=== PATIENT | female | born 1970 | race Two or more races ===

== ENCOUNTER 2024-11-23 14:00 | Outpatient (RCR) | payer MEDICAID, SELFPAY ==
--- NOTE | 2024-11-11 15:05 | PTNOTE_ITS ---
PT OP Initial Eval Patient Information Outpatient Physical Therapy Treatment Date: 11/11/24 Visit Reasons: Pain in RT knee Medical Diagnosis: M25.561 Treatment Dx #1: R knee pain Start of Care: 11/11/24 Date of Onset: May 2024 Smoking Status Smoking Status: Never smoker Initial Assessment Subjective: Pt is 54 yr old [place] speaking female who c/o R knee pain since slipping and falling at home in the kitchen onto her knees and hitting the patellas. Since then the pain is over the front and medial knee and increases with stairs, and squatting she has difficulty getting back up. PMH: HTN, DM Pt goal: to get rid of the knee pain Objective: R knee AROM: ? Flexion: full ? Extension: full ? SLR: 85 deg ? Strength: R quads 4-/5 limited by patella compression pain, hamstrings 4/5 ? Observation: B valgus orientation ? Special testing: ? Randy's: negative ? Patella compression: positive Assessment: Pt presents with positive crepitus of R patella with knee extension consistent with cartilage irritation secondary to fall. Pt requires skilled therapy to meet goals and has poor rehab potential. PT recommends orthopedic consultation. Short Term and [facility] Goals 1. Independent with HEP ? 2. Improved quad strength to 4+/5 ? 3. Pt will squat to 75% depth x10 without increase in knee pain ? 4. Pt will ascend/descend 1 flight of stairs with <=3/10 L knee pain Treatment Plan 1. Manual therapy ? 2. Therex ? 3. Modalities as indicated, MHP, ice, estim Frequency and Duration: 1-2x a week for 3-4 trial visits, if improving continue up to 12. If not, reassess Certification Dates: 11/11/24 to 02/11/25 Procedure Charges OP PT Eval Mod Complex 30 minutes: Yes
--- NOTE | 2024-11-23 16:23 | PT.ODAYNRPT ---
PT Outpatient Daily Note OP Daily Note Outpatient Physical Therapy Treatment Date: 11/23/24 Visit Reasons: Pain in RT knee Subjective: The R knee feels about the same Objective: See F/S for therex P x7' R knee Assessment: Crepitus under patella of R knee and pain limits progress with goals. Plan: Continue per POC Length of Time (minutes) of Treatment: 30 Minutes Procedure Charges Therapeutic Exercise 30 minutes: Yes
== END 2024-11-23 23:59 | disposition home or self-care (01) ==
LOC: CPTX 14:00
PROVIDERS: PCP Internal Medicine; Referring Provider Internal Medicine; Visit Provider Internal Medicine
DX: M25.561 Pain in right knee (principal); M23.8X1 Other internal derangements of right knee; I10 Essential (primary) hypertension; E11.9 Type 2 diabetes mellitus without complications
CPT/HCPCS: 97110; 97162

== ENCOUNTER 2024-12-02 13:57 | Outpatient (RCR) | payer MEDICAID, SELFPAY ==
--- NOTE | 2024-12-02 15:08 | PT.ODAYNRPT ---
PT Outpatient Daily Note OP Daily Note Outpatient Physical Therapy Treatment Date: 12/02/24 Visit Reasons: RIGHT KNEE PAIN Subjective: Pt reports R knee is doing ok, still has pain. Objective: Please see flow sheet for there x lsit. Assessment: Pt demonstrates medial knee collapse with squat exercise, corrects post cues. Plan: Continue with POC. Length of Time (minutes) of Treatment: 30 Minutes Procedure Charges Therapeutic Exercise 30 minutes: Yes
== END 2024-12-23 23:59 | disposition home or self-care (01) ==
LOC: CPTX 13:57
PROVIDERS: PCP Internal Medicine; Referring Provider Internal Medicine; Visit Provider Internal Medicine
DX: M25.561 Pain in right knee (principal); I10 Essential (primary) hypertension; E11.9 Type 2 diabetes mellitus without complications
CPT/HCPCS: 97110